=== PATIENT | female | born 1995 | race Hispanic/Latino ===

== ENCOUNTER 2018-04-28 18:26 | Inpatient (IN) | payer MEDICAID ==
[~2018-04-28] VITALS: Ht 149.9 cm; Wt 61.2 kg
[2018-04-28 20:12] VITALS: BP 100/68
[2018-04-28] MEDS ORDERED: FERR-82 PO (21:47)
[2018-04-28] MEDS ORDERED: PREN1TAB89 PO (21:47)
[2018-04-28 21:51] LABS: APPEARANCE,URINE Cloudy (CLEAR); BILIRUBIN,URINE Negative (NEGATIVE); COLOR,URINE Yellow (YELLOW); GLUCOSE, URINE (UA) Negative (NEGATIVE); KETONES,URINE Negative (NEGATIVE); LEUKOCYTE ESTERASE ,URINE Small (NEGATIVE); NITRATE,URINE Negative (NEGATIVE); OCCULT BLOOD,URINE Negative (NEGATIVE); PH,URINE 5.5 (5.0-8.0); PROTEIN,URINE Negative (NEGATIVE)
[2018-04-28 21:59] LABS: BACTERIA,URINE Few /HPF (None Seen); RBC,URINE None Seen /HPF (0-1)
[2018-04-28 22:00] LABS: MUCUS,URINE Moderate LPF (None Seen); TRANSITIONAL EPI CELLS,URINE Rare /HPF (None Seen)
[2018-04-29 00:11] LABS: HEMATOCRIT 30.1 % (36-48); MEAN CORPUSCULAR HEMOGLOBIN 26.9 pg (27.0-33.0); MEAN CORPUSCULAR HGB CONC 33.5 g/dL (32.0-36.0); MEAN CORPUSCULAR VOLUME 80.1 fL (80-100); PLATELET COUNT (AUTO) 146 K/uL (130-400); RED BLOOD CELL COUNT(AUTO) 3.75 MIL/uL (4.00-5.50); RED CELL DISTRIBUTION WIDTH 22.8 % (11.0-15.5); WHITE BLOOD COUNT (AUTO) 8.8 K/uL (4.8-10.8)
[2018-04-29] MEDS: LACTATED RINGERS 1000ML 1,000 ML IV PRN ×2 (00:28→07:00)
[2018-04-29] MEDS ORDERED: LACTATED RINGERS 1000ML 1,000 ML IV ONE ×2 (06:08→14:07)
[2018-04-29] MEDS ORDERED: OXYTOCIN 10 USP UNITS/ML ONE ×3 (06:08→17:52)
[2018-04-29] MEDS ORDERED: OXYTOCIN 10 USP UNITS/ML 20 UNIT in LACTATED RINGERS 1000ML 1,000 ML IV SCH (06:30)
[2018-04-29 06:39] LABS: RAPID PLASMA REAGIN NONREACTIVE (NONREACTIVE)
[2018-04-29] MEDS ORDERED: LANOLIN 30GM OINTMENT TP PRN (12:45)
[2018-04-29] MEDS ORDERED: WITCH HAZEL 1 PAD TP PRN (12:45)
[2018-04-29] MEDS ORDERED: MEASLES/MUMPS/RUBELLA VACCINE, LIVE 0.5 ML/VIAL SQ PRN (12:45)
[2018-04-29] MEDS ORDERED: HYDROCODONE/ACETAMINOPHEN 5/325 MG TAB PO PRN (12:45)
[2018-04-29] MEDS ORDERED: BENZOCAINE/LANOLIN/ALOE VERA 60 ML AEROSOL TP PRN (12:45)
[2018-04-29] MEDS ORDERED: DIPH,PERTUSS(ACELL),TET VAC/PF 0.5 ML VIAL IM PRN (12:45)
[2018-04-29] MEDS ORDERED: ACETAMINOPHEN 325 MG TAB PO PRN (12:45)
[2018-04-29] MEDS ORDERED: ACETAMINOPHEN-CODEINE 300/30MG TAB PO PRN (12:45)
[2018-04-29 14:36] VITALS: BP 116/73
[2018-04-29] MEDS: IBUPROFEN 800 MG TAB PO PRN (15:11)
[2018-04-29 15:21] VITALS: BP 118/75
[2018-04-29 19:21] VITALS: BP 106/58
[2018-04-29] MEDS: DOCUSATE SODIUM 100 MG CAP PO SCH (21:01)
[2018-04-30 00:09] VITALS: BP 110/68
[2018-04-30] MEDS: IBUPROFEN 800 MG TAB PO PRN (03:21)
[2018-04-30 03:51] VITALS: BP 95/58
[2018-04-30 05:21] LABS: HEMATOCRIT 26.7 % (36-48); MEAN CORPUSCULAR HEMOGLOBIN 27.1 pg (27.0-33.0); MEAN CORPUSCULAR HGB CONC 33.6 g/dL (32.0-36.0); MEAN CORPUSCULAR VOLUME 80.7 fL (80-100); PLATELET COUNT (AUTO) 136 K/uL (130-400); RED BLOOD CELL COUNT(AUTO) 3.31 MIL/uL (4.00-5.50); RED CELL DISTRIBUTION WIDTH 23.6 % (11.0-15.5); WHITE BLOOD COUNT (AUTO) 12.7 K/uL (4.8-10.8)
[2018-04-30 07:19] VITALS: BP 101/67
[2018-04-30 08:24] LABS: HEPATITIS Bs ANTIGEN SCREEN P Negative (Negative)
[2018-04-30] MEDS: DOCUSATE SODIUM 100 MG CAP PO SCH (08:33)
[2018-04-30 11:15] VITALS: BP 95/57
== END 2018-04-30 14:45 | disposition home or self-care (01) | DRG 560 ==
LOC: LDH 18:26 → WSH 04-29 14:30
PROVIDERS: ADMIT Obstetrics & Gynecology; ATTEND Obstetrics & Gynecology
PROC: 10E0XZZ Delivery of Products of Conception, External Approach (ICD-10-PCS; principal; 2018-04-29)
PROC: 0KQM0ZZ Repair Perineum Muscle, Open Approach (ICD-10-PCS; 2018-04-29)
PROC: 3E0234Z Introduction of Serum, Toxoid and Vaccine into Muscle, Percutaneous Approach (ICD-10-PCS; 2018-04-29)
PROC: 3E0134Z Introduction of Serum, Toxoid and Vaccine into Subcutaneous Tissue, Percutaneous Approach (ICD-10-PCS; 2018-04-29)
DX: O99.02 Anemia complicating childbirth (principal); O70.1 Second degree perineal laceration during delivery; Z37.0 Single live birth; Z3A.39 39 weeks gestation of pregnancy; Z23 Encounter for immunization
CPT/HCPCS: 36415; 81001; 85027; 86592; 86701; 86850; 86900; 86901; 87340; 87390; 90715; A4314; A4606; J2590; J7120

== ENCOUNTER 2021-02-27 05:30 | Day surgery (SDC) | payer MEDICAID ==
[2021-02-26 16:04] LABS: BASOPHILS % (AUTO) 0.6 % (0.0-5.0); EOSINOPHILS % (AUTO) 1.7 % (0.0-8.0); HEMATOCRIT 38.2 % (36-48); LYMPHOCYTES % (AUTO) 27.4 % (21.0-51.0); MEAN CORPUSCULAR HEMOGLOBIN 30.5 pg (27.0-33.0); MEAN CORPUSCULAR VOLUME 89.7 fL (79-99); MONOCYTES % (AUTO) 7.4 % (3.0-13.0); NEUTROPHILS % (AUTO) 62.6 % (40.0-77.0); PLATELET COUNT (AUTO) 209 K/uL (130-400); RED BLOOD CELL COUNT(AUTO) 4.26 MIL/uL (4.00-5.50); RED CELL DISTRIBUTION WIDTH 14.1 % (11.0-15.5); WHITE BLOOD COUNT (AUTO) 6.5 K/uL (4.8-10.8)
[2021-02-26 16:23] VITALS: BP 95/46
[2021-02-27] VITALS (13 sets, daily range): BP systolic 95–111; BP diastolic 55–72
[~2021-02-27] VITALS: Ht 149.9 cm; Wt 65.7 kg
[2021-02-27] MEDS: LACTATED RINGERS 1000ML 1,000 ML IV SCH ×2 (06:12→07:16)
[2021-02-27] MEDS ORDERED: DEXAMETHASONE SOD PHOSPHATE 10MG/ML 1ML VIAL ONE (06:43)
[2021-02-27] MEDS ORDERED: MIDAZOLAM HCL 1 MG/ML 2ML VIAL ONE (06:43)
[2021-02-27] MEDS ORDERED: ONDANSETRON HCL 4 MG/2 ML VIAL ONE (06:43)
[2021-02-27] MEDS ORDERED: LIDOCAINE PF 2% 5ML ABBOJECT ONE (06:43)
[2021-02-27] MEDS ORDERED: PROPOFOL 10 MG/ML 20ML VIAL IV ONE (06:43)
[2021-02-27] MEDS ORDERED: MEPERIDINE-PF 25 MG/ML SYG ONE (06:44)
[2021-02-27] MEDS ORDERED: FENTANYL CITRATE PF 50 MCG/1 ML 2ML VIAL ONE (06:44)
[2021-02-27] MEDS ORDERED: OXYTOCIN 10 USP UNITS/ML ONE (07:04)
== END 2021-02-27 08:37 | disposition home or self-care (01) ==
LOC: DAH 05:30
PROVIDERS: ATTEND Obstetrics & Gynecology
DX: O03.4 Incomplete spontaneous abortion without complication (principal); Z20.828 Contact with and (suspected) exposure to other viral communicable diseases
CPT/HCPCS: 36415 ×2; 59812; 85025; 86850; 86900; 86901; A4215; A4216; A4221; A4222; A4223; A4335; A4663; C9803; J1100; J2001; J2175; J2250; J2405; J2590; J2704; J3010; J7120 ×2; U0003

== ENCOUNTER 2021-12-14 19:59 | Observation (INO) | payer MEDICAID ==
[~2021-12-14] VITALS: Ht 149.9 cm; Wt 67.1 kg
[2021-12-14 20:11] VITALS: BP 95/49
[2021-12-14] MEDS ORDERED: LACTATED RINGERS 1000ML IV PRN (20:30)
[2021-12-14 21:01] LABS: APPEARANCE,URINE Clear (CLEAR); BILIRUBIN,URINE Small (NEGATIVE); COLOR,URINE Dark Yellow (YELLOW); GLUCOSE, URINE (UA) Negative (NEGATIVE); KETONES,URINE >=160 mg/dL (NEGATIVE); LEUKOCYTE ESTERASE ,URINE Trace (NEGATIVE); NITRATE,URINE Negative (NEGATIVE); OCCULT BLOOD,URINE Negative (NEGATIVE); PH,URINE 6.5 (5.0-8.0); PROTEIN,URINE POS 1+ mg/dL (NEGATIVE)
[2021-12-14 21:08] LABS: BACTERIA,URINE Few /HPF (None Seen); MUCUS,URINE Moderate LPF (None Seen); RBC,URINE 0-1 /HPF (0-1); SQUAMOUS EPITHELIAL CELL,UR Few /HPF (0-2)
[2021-12-14] MEDS: TERBUTALINE SULFATE VIAL 1MG/ML SQ PRN ×2 (21:49→22:45)
[2021-12-14] MEDS ORDERED: LACTATED RINGERS 1000ML 1,000 ML IV SCH (23:00)
== END 2021-12-15 00:51 | disposition home or self-care (01) ==
LOC: EDH 19:59 → LDH 20:00
PROVIDERS: ADMIT Obstetrics & Gynecology; ATTEND Obstetrics & Gynecology
DX: O62.9 Abnormality of forces of labor, unspecified (principal); Z3A.36 36 weeks gestation of pregnancy
CPT/HCPCS: 59025; 76819; 81001; 96360; 96372 ×2; G0378 ×5; G0379; J3105; 96361